=== PATIENT | male | born 2000 | race American Indian/Alaskan Native ===

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

== ENCOUNTER 2019-02-26 16:34 | Emergency (ER) | payer OTHER ==
[~2019-02-26] VITALS: Ht 177.8 cm; Wt 93.0 kg
--- OUTSIDE RECORDS SUMMARY | ~2019-02-26 | XMS | Encounter Summary ---
Demographics + + + | Address | [address] | | | [place] [address] | + + + | Home Phone | | + + + | Preferred Language | Unknown | + + + | Marital Status | Single | + + + | Buddhist Affiliation | Unknown | + + + | Race | or | + + + | Ethnic Group | Not or | + + + Author + + + | Organization | Unknown | + + + | Address | Unknown | + + + | Phone | Unavailable | + + + Support + + +---------+ + | Name | Relationship | Address | Phone | + + +---------+ + | Araceli Navarro | ECON | Unknown | | + + +---------+ + Care Team Providers + +------+ + | Care Networks Computer Consultant Name | Role | Phone | + +------+ + PCP | Unavailable | + +------+ + Encounter Details +--------+ + + + + | Date | Type | Department | Care Team | Description | +--------+ + + + + | 04/19/ | Transcribed | | Dictation, Other | Transcribed | | 2001 | | | | | +--------+ + + + + Social History + +-------+ +--------+------+ | Tobacco Use | Types | Packs/Day | Years | Date | | | | | Used | | + +-------+ +--------+------+ | Never Assessed | | | | | + +-------+ +--------+------+ + + + | Sex Assigned at | Date Recorded | | | | + + + | Not on file | | + + + + + + + | Job Start Date | Occupation | Industry | + + + + | Not on file | Not on file | Not on file | + + + + + + + + | Travel History | Travel Start | Travel End | + + + + + + | No recent travel history available. | + + documented as of this encounter Progress Notes Interface, Automation Controls Engineer In - 12/26/2005 5:23 AM PST April 19, 2000 Marcelo Acharya MD [address] [facility], [address] [place] [address] RE:Shilo Navarro MR#:[id number] : 89 Dear Don: Today I received your report on Shilo Navarro. He does not have any chromosomal abnormalities. Hopefully, this will clarify some issues on Shilo. Please feel free to contact me if you have any additional questions. Sincerely, [id number] Estuardo Carnes MD Web Content Specialist of Pediatric Otolaryngology Department of Otolaryngology/Head and Neck Surgery Email: [email or web address] URL: [email or web address] FLAVIA/maria eugenia P 5: 23 AM PSTdocumented in this encounter Plan of Treatment Not on filedocumented as of this encounter Visit Diagnoses Not on filedocumented in this encounter"
--- OUTSIDE RECORDS SUMMARY | ~2019-02-26 | XMS | Clinical Summary ---
Demographics + + + | Address | [address] | | | [place] [address] | + + + | Home Phone | | + + + | Preferred Language | Unknown | + + + | Marital Status | Single | + + + | Methodist Affiliation | Unknown | + + + [...] Team Providers + +------+ + | Care Manager Electrical Name | Role | Phone | + +------+ + PCP | Unavailable | + +------+ + Source Comments MARINE is fully live on both Health system Ambulatory and Health system InPatient.[facility] Allergies Not on File Medications Not on file Active Problems Not on file Social History + +-------+ +--------+------+ | Tobacco [...] recent travel history available. | + + Last Filed Vital Signs Not on file Plan of Treatment + + + + + | Health Maintenance | Due Date | Last Done | Comments | + + + + + | Influenza (Flu) | | | | | vaccination (#1) | 9 | | | + + + + + | Pneumococcal | Aged Out | | No longer eligible | | vaccination | | | based on patient's | | | | | age to complete this | | | | | topic | + + + + + Results Not on filefrom Last 3 Months"
--- OUTSIDE RECORDS SUMMARY | ~2019-02-26 | XMS | Encounter Summary ---
Demographics + + + | Address | [address] | | | [place] [address] | + + + | Home Phone | | + + + | Preferred Language | Unknown | + + + | Marital Status | Single | + + + | Religion Affiliation | Unknown | + + + | Race | or | + + + | Ethnic Group | Not or | + + + Author + + + | Author | [facility] | + + + | Organization | [facility] | + + + | Address | Unknown | + + + | Phone | Unavailable | + + + Support + + +---------+ + | Name | Relationship | Address | Phone | + + +---------+ + | Araceli Navarro | ECON | Unknown | | + + +---------+ + Care Team Providers + +------+ + | Care Teachers Aide Name | Role | Phone | + +------+ + PCP | Unavailable | + +------+ + Encounter Details +--------+ + + + + | Date | Type | Department | Care Team | Description | +--------+ + + + + | 01/04/ | Office | [facility] | Report, Outpatient | Progress Note | | 2000 | Visit-Trans | | Consultation | | | | cribed | | | | +--------+ + + [...] as of this encounter Progress Notes Interface, Coffee Grower In - 01/04/2006 5:09 AM PSTCLINIC DATE: 01/05/2000 CLINIC: CLEFT PALATE/CRANIOFACIAL CLINIC DISCIPLINE: SPEECH/LANGUAGE PATHOLOGY This 34-dlhql-zms youngster is seen today for coordinated appointments in the Cleft Palate Program Clinic. Shilo is accompanied to the clinic by his mother, Araceli. The family is here today for follow-up with regard to his early speech progress and voice quality and nasal resonance balance as well if possible. Shilo is beginning to use true words at home, both mamma, daddy, baba for bottle, baby, hat, hi, yeah, and is putting words together in a combination like what's that or who's that. He also utilizes a great deal of jargon as well where he talks to himself. He also enjoys singing according to his mother's report. This youngster is receiving Early Intervention Services as well. Shilo is utilizing some of the non-air pressure sounds such as M, N, H, W and Y sounds. He is also beginning to use air pressure sounds such as B and D. He has not yet begun to use P, T, K, or G sounds yet. These sounds would be expected around age [age] to fas-lsn-g-half years. Oral structures reveal that this youngster has soft palate movement upon phonation with no visible fistulae present in the hard or soft palate areas. There is no report by parents of food or liquid leak into the nasal cavity when Shilo eats or drinks. This youngster has had a history of liquid leak only in the period. Tonsils and adenoids are present according to the mother's report and upon evaluation visually. We could not perceptually gain appropriate information to make judgments on this youngster's voice quality or nasal resonance balance or velopharyngeal sufficiency as he is only using single words. However, the overall impression of this youngster is that he is making good progress in the use of early sounds, M, N, H, W and Y, and he is beginning to use the air pressure sounds B and D. We would like to recommend that the family continue to work with this youngster on the other air pressure sounds, P, T, K and G sounds, imitating them for Shilo with small toys each day and also chaining together these sounds such as [place] or [place] so he can see the adult model of these sounds and hear them and become familiar with them for usage himself. We will plan to see Shilo in our clinic again in approximately six months. At that time we will continue to evaluate his progress in articulation, voice quality, and nasal resonance balance as well as his overall ability to produce air pressure sounds in two-word combinations. Shilo is a delightful youngster. We enjoyed having him in the clinic today. We will look forward to our next visit. Mary Beth Almanza M.S., C.C.C.-S.P. Speech/Language Pathologist Director, Craniofacial Disorders Program [id number] signed by Interface, Coffee Grower In at 01/04/2006 5:09 AM PSTInterf britni, Coffee Grower In - 01/04/2006 5:09 AM PSTCLINIC DATE: 01/05/2000 CLINIC NAME: CRANIOFACIAL DISORDER CLINIC DISCIPLINE: SOCIAL WORK Shilo is 18 months old, and he has a diagnosis of submucosal cleft palate. This is his first visit to our clinic. Shilo lives in [place] with his mother, Linh Navarro. She is a single parent. Shilo has never been involved with his biological father, and there is no financial support. Shilo is the only child of his mother. Shilo's cleft palate was not noted until a couple of months ago. Medical care has been through the [facility] in [place]. The physician there made a referral to a staff combat information center officer, Dr. Marcelo Acharya, and also to an ear, nose and throat specialist, Dr. Guan, in [place]. A referral was then made to [facility] for further evaluation. Shilo has been having ongoing problems eating, and he is also a very picky eater. 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 Please refer to Luna Sawyer's report for further medical concerns and referrals. Mom is wondering whether or not surgery will be scheduled soon. She is concerned about the palate, but she is hopeful that it can be corrected. Shilo is also delayed in his speech and language. He is enrolled in Early Intervention through [facility]. He works with Jacinda Ortiz and Shabnam Patricia, both Child Development Specialists. Mother is working at the [employer] in [place], in the office. She works days. She has childcare arrangements through a daycare program. She does live with her sister and another friend, and therefore they are able to share expenses. She does not receive any mauricio assistance from [facility]. They are on insurance through the [employer] [facility] in [place]. Shilo's mother is partial and has enrolled in the [facility] program. It seems that Linh and her son are receiving good services in [place]. They are able to manage without additional financial assistance from the state. Mom is very proud to be independent of this type of assistance. She seems conscientious and eager for further work to be done on her son. Again, her concerns are feeding issues as well as Shilo's developmental delay. Hopefully, we will be able to address both of these in our clinic here as well as locally through the Early Intervention Program. Roxanna Clark LCSW Flavor Room Worker [id number] signed by Interface, Coffee Grower In at 01/04/2006 5:09 AM PSTInterf britni, Coffee Grower In - 01/04/2006 5:09 AM PSTCLINIC DATE: 01/05/2000 CLINIC NAME: CRANIOFACIAL DISORDERS CLINIC DISCIPLINE: PEDIATRIC NURSE PRACTITIONER Shilo is a [age] year, six month old little boy who was referred by Dr. Acacia Segura, of the [facility], for evaluation of possible submucous cleft. Shilo is accompanied by his mother, whose name is Araceli Navarro, for today's evaluation. Shilo will be seen by the nurse practitioner, Dr. Estuardo Carnes, ear, nose and throat specialist, our program social service assistant, Pediatric Audiology, and speech pathologist Mary Beth Almanza. CHIEF CONCERN: Mother is interested in knowing whether or not Shilo needs surgery for a submucous cleft palate. REVIEW OF RELEVANT MEDICAL HISTORY: Mother reports that there is no family history of any children born with any type of cleft or any other type of craniofacial difference. Mother states that she was a very poorly controlled insulin-dependent diabetic and did not know that she was with Shilo until she was at the end of her first trimester. Araceli also admits that she did participate in personal use of marijuana and methamphetamines prior to learning she was . Shilo was born seven weeks premature. He was [facility] at [facility]. He did weigh 5 pounds, 7 ounces. Apparently a heart murmur was diagnosed in the period but Mother was told that no further cardiac follow-up would be required for it. Shilo had a history of choking and a history of failure to thrive. Mother felt that he was able to take his bottles fairly well, so she was not aware of Shilo having any problem drawing nutrition from his bottle. She did report again coughing and choking during feeds and also describes some minimal nasal leakage, which she thought was a runny nose but now, in retrospect, believes it might have been a little bit of his milk leaking through his nose. She feels that he got "plenty to eat but still couldn't grow." His early health history was complicated by rather chronic and constant otitis media. Mother attributes his poor growth to frequent illness due to ear infections. He was finally referred to Dr. Alvarez, who is an ear, nose and throat specialist. Dr. Alvarez examined and scoped Shilo in August of 1999 and determined that pressure equalization (PE) tube placement was certainly necessary but confirmed the presence of a submucous cleft. Dr. Alvarez's report also remarks specifically about poor pharyngeal wall closure. Mother reports that she felt Shilo's hearing was very poor prior to receiving his tubes but she now is aware that he is doing much better and his verbalizations have increased significantly since his surgery in September. Shilo is involved with children's aide five days per week. His baby-sitter does smoke. Shilo's present nutrition consists of whole milk and appropriate foods for a toddler. Mother describes Shilo as a picky eater. He does like potatoes but he is just getting to the point of accepting soft meats such as turkey and bologna. He does enjoy tuna. He does take a bottle when he needs comforting but he does use a sippy cup at the daycare center where he attends five days per week. Mother reports that Shilo is just starting to feed himself. He is quite imitative, according to Mother, and is now brushing his own teeth and has been doing that for the last few months. Shilo is reluctant somewhat to let others brush his teeth. Shilo is currently in Early Intervention and receives physical therapy two-three times per month. Mother reports the physical therapist goes to Shilo's daycare site. In addition, he does receive monitoring for general developmental progress. A review of his early milestones indicates that Shilo sat at approximately nine months of age, he was crawling at about [age] year, and he has just started walking at 18 months of age. Mother feels that he has good understanding of receptive language. She points out that he is able to understand and comply with very simple commands. His expressive language has blossomed since he received his PE tubes. Mother reports that he says mama, rafal, baby, baba, hat, yuh, no, what's that, and who's that. Our social service assistant will be meeting with Bret today, as well, to review the current family social circumstances. PHYSICAL EXAMINATION FINDINGS: Weight is 22 pounds, 6 ounces. His length is 82 cm. Head circumference is 48.5 cm. Shilo is a very sweet little boy with a ready social smile. He is small for his age but well-proportioned. He has a full head of dark, curly hair. His anterior fontanelle is fibrosed. He does have somewhat unusual facies, in that his eyes appear somewhat close-set. He has a narrowing through his midface, slightly prominent, almost cupped ears, and thin upper lip with kind of a flattened philtrum. His pupils are equal, round, and reactive to light. Red light reflexes are positive bilaterally. He does track across midline but I had trouble getting his cooperation to check his full extraocular movements. His nose is somewhat elongated, with the suggestion of a wider nasal bridge. He has no nasal secretions today. His lower jaw appears to be normally formed and of normal size. He does have teeth present but he was very reluctant for oral exam so I could not speak to the issue of any decay. His palate seemed to have a prominent margin at the hard and soft palatal junctures but I was not able to visualize his uvula due to his poor cooperation. I felt he had no swollen glands. I could not hear a heart murmur today. His chest had a few coarse rhonchi in the upper chest area. There were absolutely no rales and his respirations were easy and quiet. His abdomen was soft without mass. His back appeared straight without irregularity. His overall tone was low normal and I could not see a PE tube on the left side but one was visible on the right. He was circumcised. His right testis was sitting a little bit high in the scrotal sac in comparison to the left. His deep tendon reflexes were +1 and symmetrical at his knees. I did not get any clonus. Full development testing was not done today. IMPRESSION: Shilo is an 18 month old boy who was born seven weeks prematurely and whose early history included a heart murmur, which is no longer audible, a history of chronic otitis media with fluid, which has required tympanostomy tube placement, a history of developmental delay and failure to thrive, and currently a question of the presence of a submucous cleft palate. I believe Shilo would also benefit from chromosome testing and looking specifically for the possibility of 22q11 deletion. His environment, of course, could also have contributed to the etiology of his physical differences. PLAN FOR FOLLOW-UP: 1) Mother and I did talk about blood testing for 22q11 deletion, which is specific for velocardiofacial syndrome. I did ask Mother to review this topic with Dr. Carnes when she saw him later today. The blood testing could be done today before she leaves clinic or certainly could be done through her primary health care physician, as well. Positive testing would certainly prompt a referral to our [facility] Genetics and Defects Clinic. 2) Shilo will be seen by Dr. Carnes later this afternoon to diagnose and discuss management plan for possible submucosal cleft palate. 3) I would like to see Shilo in six months when he returns for his next full Craniofacial Team evaluation. In addition to today's team members, I would also like to request that Shilo have a visit with Dr. Meño Joseph, who is the dentist for our team. Adonis VillegasNJhon. Pediatric Nurse Practitioner REGINA/x36 [id number] signed by Interface, Coffee Grower In at 01/04/2006 5:09 AM PSTInterf britni, Coffee Grower In - 01/04/2006 5:09 AM PSTCLINIC DATE: 01/05/2000 CLINIC NAME: CRANIOFACIAL DISORDERS CLINIC DISCIPLINE: PEDIATRIC AUDIOLOGY BACKGROUND INFORMATION: Shilo was seen today for a hearing evaluation through the Craniofacial Disorders Clinic. He was accompanied by his mother who reports that Shilo has had tympanostomy tubes placed in both ears in [place], [place]. She has no concerns with Shilo's hearing today. Shilo is diagnosed with submucosal cleft palate. AUDIOLOGIC FINDINGS: Brets hearing was evaluated today through the use of Visual Reinforcement Audiometry (VRA). He consistently localized to voice stimuli when presented at 15 dB HL. Shilo also consistently localized to narrow band noise acoustic signals with center frequencies of 1500, 3000, 4000, and 6000 Hz when presented at 30 dB HL. Shilo was seen by Estuardo Carnes M.D., pediatric title examiner, prior to this visit to Pediatric Audiology. Tympanostomy tubes were noted to be patent and functioning. DIAGNOSTIC IMPRESSIONS: Brets hearing is communicative and cognitive needs. Hearing in at least the better ear is most likely within normal limits, as displayed by consistent localization in sound field. Patent and functioning tympanostomy tubes bilaterally. COMMENTS AND RECOMMENDATIONS: The results of today's visit were shared with Shilo's mother and the rest of the Craniofacial Disorders Clinic team. It was recommended that he return for additional hearing evaluation with his next visit to the Craniofacial Disorders Clinic. Génesis Gerardo M.S., [facility]-A Box Sorter ACCOUNTING CLERK/x36 [id number] signed by Interface, Coffee Grower In at 01/04/2006 5:09 AM PSTdocume nted in this encounter Plan of Treatment Not on filedocumented as of this encounter Visit Diagnoses Not on filedocumented in this encounter
--- OUTSIDE RECORDS SUMMARY | ~2019-02-26 | XMS | Clinical Summary ---
Demographics + + + | Address | [address] | | | [place] [address] | + + + | Home Phone | | + + + | Preferred Language | Unknown | + + + | Marital Status | Single | + + + | Sabianism Affiliation | Unknown | + + + [...] Team Providers + +------+ + | Care Camera Engineer Name | Role | Phone | + +------+ + PCP | Unavailable | + +------+ + Source Comments MARINE is fully live on both [facility] Ambulatory and [facility] InPatient.[facility] Allergies Not on File Medications Not on [...]
--- OUTSIDE RECORDS SUMMARY | ~2019-02-26 | XMS | Encounter Summary ---
Demographics + + + | Address | [address] | | | [place] [address] | + + + | Home Phone [...] Team Providers + +------+ + | Care Grid Caster Name | Role | Phone | + [...] as of this encounter Progress Notes Interface, Blasting Cap Assembler In - 12/26/2005 5:23 AM PST April 19, 2000 Marcelo Acharya MD [address] [facility], [address] [place] [address] RE:Shilo Navarro MR#:[id number] : 89 Dear Don: Today I received your report on Shilo Navarro. He does not have any chromosomal abnormalities. Hopefully, this will clarify some issues on Shilo. Please feel free to contact me if you have any additional questions. Sincerely, [id number] Estuardo Carnes MD Director Of Brand Marketing of Pediatric Otolaryngology Department of Otolaryngology/Head and Neck Surgery Email: [email or web address] URL: [email or web address] FLAVIA/maria eugenia P 5: 23 AM PSTdocumented in this encounter Plan of Treatment Not on filedocumented as of this encounter Visit Diagnoses Not on filedocumented in this encounter"
--- OUTSIDE RECORDS SUMMARY | ~2019-02-26 | XMS | Encounter Summary ---
Demographics + + + | Address | [address] | | | [place] [address] | + + + | Home Phone | | + + + | Preferred Language | Unknown | + + + | Marital Status | Single | + + + | Congregation Affiliation | Unknown | + + + | Race | or | + + + | Ethnic Group | Not or | + + + Author + + + | Author | [facility] | + + + | Organization | [facility] | + + + | Address | Unknown | + + + | Phone | Unavailable | + + + Support + + +---------+ + | Name | Relationship | Address | Phone | + + +---------+ + | Araceli Navarro | ECON | Unknown | | + + +---------+ + Care Team Providers + +------+ + | Care Marking Machine Operator Name | Role | Phone | + +------+ + PCP | Unavailable | + +------+ + Encounter Details +--------+ + + + + | Date | Type | Department | Care Team | Description | +--------+ + + + + | 01/04/ | Office | [facility] | Note, Outpatient | Progress Note | | 2000 | Visit-Trans | MEDICINE | Clinic | | | | cribed | | [...] as of this encounter Progress Notes Interface, Grease Remover In - 01/04/2006 5:09 AM PSTCLINIC DATE: 01/05/2000 PEDIATRIC OTOLARYNGOLOGY CLINIC PRIMARY CARE PROVIDER: Marcelo Acharya M.D. HISTORY OF PRESENT ILLNESS: This 75-hycre-yya boy is referred to the Craniofacial Disorders Team for evaluation of a possible submucosal cleft palate. The mother reports that he has had multiple episodes of acute otitis media that required ear tube placement in September 1999. He did have some scant otorrhea after surgery but none since then. He did not have any preoperatively. His acute ear infections were generally associated with upper respiratory tract infections. His feeds have been improving, and he is now taking solids. The mother denies any nasal regurgitation. He has not had any blood work or analyses for any chromosomal abnormality. In the process of being evaluated for his ear tubes by , a nasoendoscopy was performed (I have the records of this). In his evaluation, he did not notice any abnormality of the palate by flexible examination. He does note that there was closure of the velopharynx. He states that he did not see a muscular dehiscence. PAST MEDICAL HISTORY ALLERGIES: ZITHROMAX. MEDICATIONS: None. SURGERIES: Ear tube placement in September 1999 and circumcision. Additional past medical history, family history, social history, and review of systems are documented on the pediatric otolaryngology intake form and are reviewed. He does have a history of a failure to thrive as well as a heart murmur. He is a premature baby at 33 weeks and is a . He does attend a large day care. He is also exposed to smoke. There is no other family history of cleft lip or palate. Other findings are documented and noncontributory. PHYSICAL EXAMINATION: GENERAL: A well-developed, well-nourished, active boy, cooperative with the examination but not talkative and in no respiratory distress. VITAL SIGNS: Weight 10 kg (approximately 10th percentile). HEENT: Head: Normocephalic and atraumatic. No obvious asymmetries. Ears: The external ears are normal. The external auditory canals are clear. Both eardrums have ear tubes in place, and they are clear. Eyes: Sclerae and conjunctivae are clear. Nose: There is no external deformity. Septum is midline. There is no discharge seen. OC/OP: His primary dentition is beginning to erupt, and they appear to be in good health. There is no labial, gingival, or other mucosal lesions. Palate appears intact with no evidence of clefting by inspection or palpation. Tonsils are 1 to 2+. NECK: There is no cervical adenopathy. There is no salivary or thyroid masses. NEUROLOGIC: Cranial nerves: He moves his face, tongue, and palate symmetrically. ASSESSMENT 1. History of eustachian tube dysfunction, status post ear tube placement. 2. History of developmental delays. 3. 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 PLAN: On my evaluation (and that of Mary Beth Almanza), we did not see any clear evidence of a submucosal cleft palate. However, there could be subtle palatal abnormalities that are not evident at this age. I would like to see how his speech and language develops, and if he is showing signs of hypernasality or nasal air admission, then I think a reevaluation in the Velopharyngeal Insufficiency Clinic would be warranted. Otherwise, follow up with me will be on an as needed basis. Estuardo Carnes M.D. Pediatric Otolaryngology-Head and Neck Surgery / HS [id number] / [id number] / [id number] / [id number] cc: Marcelo Acharya M.D. [address] [place] [address], [address] [place] [address] Maggie Cristina [facility] B8 [id number] signed by Interface, Grease Remover In at 01/04/2006 5:09 AM PSTdocume nted in this encounter Plan of Treatment Not on filedocumented as of this encounter Visit Diagnoses Not on filedocumented in this encounter"
--- OUTSIDE RECORDS SUMMARY | ~2019-02-26 | XMS | Encounter Summary ---
Demographics + + + | Address | [address] | | | [place] [address] | + + + | Home Phone | | + + + | Preferred Language | Unknown | + + + | Marital Status | Single | + + + | Moravian Affiliation | Unknown | + + + | Race | or | + + + | Ethnic Group | Not or | + + + Author + + + | Author | [facility] | + + + | Organization | [facility] | + + + | Address | Unknown | + + + | Phone | Unavailable | + + + Support + + +---------+ + | Name | Relationship | Address | Phone | + + +---------+ + | Araceli Navarro | ECON | Unknown | | + + +---------+ + Care Team Providers + +------+ + | Care Instrument Sterilizer Name | Role | Phone | + [...] as of this encounter Progress Notes Interface, Supervisor Shaving And Splitting In - 01/04/2006 5:09 AM PSTCLINIC DATE: 01/05/2000 PEDIATRIC OTOLARYNGOLOGY CLINIC PRIMARY CARE PROVIDER: Marcelo Acharya M.D. HISTORY OF PRESENT ILLNESS: This 89-liifz-zmq boy is referred to the Craniofacial Disorders [...] Pediatric Otolaryngology-Head and Neck Surgery / HS [id number] / [id number] / [id number] / [id number] cc: Marcelo Acharya M.D. [address] [place] [address], [address] [place] [address] Maggie Cristina [facility] B8 [id number] signed by Interface, Supervisor Shaving And Splitting In at 01/04/2006 5:09 AM PSTdocume nted in this encounter Plan of Treatment Not on filedocumented as of this encounter Visit Diagnoses Not on filedocumented in this encounter"
--- OUTSIDE RECORDS SUMMARY | ~2019-02-26 | XMS | Encounter Summary ---
Demographics + + + | Address | [address] | | | [place] [address] | + + + | Home Phone | | + + + | Preferred Language | Unknown | + + + | Marital Status | Single | + + + | Roman Catholic Affiliation | Unknown | + + + | Race | or | + + + | Ethnic Group | Not or | + + + Author + + + | Author | [facility] | + + + | Organization | [facility] | + + + | Address | Unknown | + + + | Phone | Unavailable | + + + Support + + +---------+ + | Name | Relationship | Address | Phone | + + +---------+ + | Araceli Navarro | ECON | Unknown | | + + +---------+ + Care Team Providers + +------+ + | Care Awning Installer Name | Role | Phone | + [...] as of this encounter Progress Notes Interface, Breakfast Supervisor In - 01/04/2006 5:09 AM PSTCLINIC DATE: 01/05/2000 CLINIC: CLEFT PALATE/CRANIOFACIAL CLINIC DISCIPLINE: SPEECH/LANGUAGE PATHOLOGY This 74-elqrg-frn youngster is seen today for coordinated appointments [...] would be expected around age [age] to grb-dew-w-half years. Oral structures reveal that this youngster [...] Speech/Language Pathologist Director, Craniofacial Disorders Program [id number] signed by Interface, Breakfast Supervisor In at 01/04/2006 5:09 AM PSTInterf britni, Breakfast Supervisor In - 01/04/2006 5:09 AM PSTCLINIC DATE: 01/05/2000 CLINIC NAME: CRANIOFACIAL DISORDER CLINIC DISCIPLINE: SOCIAL WORK Shilo is 18 months old, and he has a diagnosis of submucosal cleft palate. This is his first visit to our clinic. Shilo lives in [place] with his mother, Linh Navarro. She is a single parent. Shilo has never been involved with his biological father, and there is no financial support. Shilo is the only child of his mother. Shilo's cleft palate was not noted until a couple of months ago. Medical care has been through the [facility] in [place]. The physician there made a referral to a air pollution inspector, Dr. Marcelo Acharya, and also to an ear, nose and throat specialist, Dr. Guan, in [place]. A referral was then made to [facility] for further evaluation. Shilo has been having [...] He is enrolled in Early Intervention through [facility]. He works with Jacinda Ortiz and Shabnam Patricia, both Child Development Specialists. Mother is working at the [employer] in [place], in the office. She works days. She has childcare arrangements through a daycare program. She does live with her sister and another friend, and therefore they are able to share expenses. She does not receive any mauricio assistance from [facility]. They are on insurance through the [facility] in [place]. Shilo's mother is partial and has enrolled in the [place] program. It seems that Linh and her son are receiving good services in [place]. They are able to manage without additional [...] the Early Intervention Program. Roxanna Clark LCSW Finance Lecturer EM:[id number] signed by Interface, Breakfast Supervisor In at 01/04/2006 5:09 AM PSTInterf britni, Breakfast Supervisor In - 01/04/2006 5:09 AM PSTCLINIC DATE: 01/05/2000 CLINIC NAME: CRANIOFACIAL DISORDERS CLINIC DISCIPLINE: PEDIATRIC NURSE PRACTITIONER Shilo is a [age] year, six month old little boy who was referred by Dr. Acacia Segura, of the [facility], for evaluation of possible submucous cleft. Shilo is accompanied by his mother, whose name is Araceli Navarro, for today's evaluation. Shilo will be seen by the nurse practitioner, Dr. Estuardo Carnes, ear, nose and throat specialist, our program nephrology social worker, Pediatric Audiology, and speech pathologist Mary Beth [...] seven weeks premature. He was born at [facility]. He did weigh 5 pounds, 7 [...] surgery in September. Shilo is involved with child support specialist five days per week. His baby-sitter does [...] no, what's that, and who's that. Our nephrology social worker will be meeting with Bret today, as [...] would certainly prompt a referral to our [facility] Genetics and Defects Clinic. 2) Shilo will [...] team. Adonis VillegasNJhon. Pediatric Nurse Practitioner REGINA/x36 [id number] signed by Interface, Breakfast Supervisor In at 01/04/2006 5:09 AM PSTInterf britni, Breakfast Supervisor In - 01/04/2006 5:09 AM PSTCLINIC DATE: 01/05/2000 CLINIC NAME: CRANIOFACIAL DISORDERS CLINIC DISCIPLINE: PEDIATRIC AUDIOLOGY BACKGROUND INFORMATION: Shilo was seen today for a hearing evaluation through the Craniofacial Disorders Clinic. He was accompanied by his mother who reports that Shilo has had tympanostomy tubes placed in both ears in [place], [place]. She has no concerns with Shilo's [...] was seen by Estuardo Carnes M.D., pediatric color room attendant, prior to this visit to Pediatric Audiology. [...] visit to the Craniofacial Disorders Clinic. Génesis Greardo M.S., [facility] Infectious Waste Technician BOW MAKING MACHINE OPERATOR/[id number] signed by Interface, Breakfast Supervisor In at 01/04/2006 5:09 AM PSTdocume nted in this encounter Plan of Treatment Not on filedocumented as of this encounter Visit Diagnoses Not on filedocumented in this encounter
--- OUTSIDE RECORDS SUMMARY | ~2019-02-26 | XMS | Encounter Summary ---
Demographics + + + | Address | [address] | | | [place] [address] | + + + | Home Phone | | + + + | Preferred Language | Unknown | + + + | Marital Status | Single | + + + | Voodoo Affiliation | Unknown | + + + | Race | or | + + + | Ethnic Group | Not or | + + + Author + + + | Author | [facility] | + + + | Organization | [facility] | + + + | Address | Unknown | + + + | Phone | Unavailable | + + + Support + + +---------+ + | Name | Relationship | Address | Phone | + + +---------+ + | Araceli Navarro | ECON | Unknown | | + + +---------+ + Care Team Providers + +------+ + | Care School Director Name | Role | Phone | + +------+ + PCP | Unavailable | + +------+ + Encounter Details +--------+ + + + + | Date | Type | Department | Care Team | Description | +--------+ + + + + | 01/04/ | Results | Otolaryngology | Estuardo Carnes MD | | | 1999 | Only | Pediatrics Services | [address] [facility] | | | | | [facility] [address] [facility] | [facility] | | | | | Mailcode: [address] | [place], [place] | | | | | Yaya | [address] | | | | | [place], [place] | [phone] | | | | | [address] | | | | | | [phone] | | | +--------+ + + + [...] + + documented as of this encounter Plan of Treatment Not on filedocumented as of this encounter Procedures + +--------+ + + + | Procedure Name | Priori | Date/Time | Associated Diagnosis | Comments | | | ty | | | | + +--------+ + + + | SPECIMEN ROUTING | Routin | 01/05/2000 | | Results for this | | | e | 3:10 PM | | procedure are in the | | | | PST | | results section. | + +--------+ + + + | COAG MASTER PANEL | Routin | 01/05/2000 | | Results for this | | | e | 2:55 PM | | procedure are in the | | | | PST | | results section. | + +--------+ + + + | INR | Routin | 01/05/2000 | | Results for this | | | e | 2:55 PM | | procedure are in the | | | | PST | | results section. | + +--------+ + + + | APTT (ACT. PART. | Routin | 01/05/2000 | | Results for this | | THROMBO TIME) | e | 2:55 PM | | procedure are in the | | | | PST | | results section. | + +--------+ + + + | CALCIUM, IONIZED, | Routin | 01/05/2000 | | Results for this | | WHOLE BLOOD | e | 2:55 PM | | procedure are in the | | | | PST | | results section. | + +--------+ + + + | CYTOGENETICS REPORT | Routin | 01/05/2000 | | Results for this | | | e | | | procedure are in the | | | | | | results section. | + +--------+ + + + documented in this encounter Results SPECIMEN ROUTING (01/05/2000 3:10 PM PST) + + + + + + | Component | Value | Ref Range | Performed | Pathologist | | | | | At | Signature | + + + + + + | SAMPLE | green sod/hep | | [facility] | | | TYPE-ROUTIN | | | DEPARTMENT | | | G | | | OF | | | | | | PATHOLOGY | | + + + + + + | TEST | fish test | | [facility] | | | REQUESTED | | | DEPARTMENT | | | | | | OF | | | | | | PATHOLOGY | | + + + + + + | SENT TO | Cytogenetics Lab:Ext | | [facility] | | | | [phone] | | DEPARTMENT | | | | | | OF | | | | | | PATHOLOGY | | + + + + + + + + | Specimen | + + | | + + + + + + + | Performing | Address | City/State/Zipcode | Phone Number | | Organization | | | | + + + + + | [facility] | [address] | [place] [address] | | | PATHOLOGY | [address] | | | + + + + + | [facility] | [facility] | [place] [address] | | | PATHOLOGY | [address] | | | + + + + + APTT (ACT. PART. THROMBO TIME) (01/05/2000 2:55 PM PST) + + + + + + | Component | Value | Ref Range | Performed | Pathologist | | | | | At | Signature | + + + + + + | APTT | 36.8 (H)Comment: | 27.0 - 35.0 | [facility] | | | | APTT Therapeutic | seconds | DEPARTMENT | | | | Range | | OF | | | | | | PATHOLOGY | | | | (70-110)sec | | | | | | Heparin levels | | | | | | of 0.35-0.7 U/mL | | | | + + + + + + + + | Specimen | + + | | + + + + + + + | Performing | Address | City/State/Zipcode | Phone Number | | Organization | | | | + + + + + | [facility] DEPARTMENT | [address] | [place] [address] | | | PATHOLOGY | [address] | | | + + + + + | [facility] DEPARTMENT | [address] | [place] [address] | | | PATHOLOGY | [address] | | | + + + + + PROTHROMBIN TIME (01/05/2000 2:55 PM PST) + + + + + + | Component | Value | Ref Range | Performed | Pathologist | | | | | At | Signature | + + + + + + | INR | 0.98Comment: | 0.98 - 1.08 INR | [facility] | | | | PT INR Therapeutic | | DEPARTMENT | | | | ranges for full | | OF | | | | anticoagulation: | | PATHOLOGY | | | | INR for | | | | | | Venous Thromboembolism | | | | | | | | | | | | (2.0-3.0)INR | | | | | | INR for most | | | | | | patients with mech. | | | | | | valves (2.5-3.5)INR | | | | + + + + + + + + | Specimen | + + | | + + + + + + + | Performing | Address | City/State/Zipcode | Phone Number | | Organization | | | | + + + + + | [facility] | [address] | [place] [address] | | | PATHOLOGY | [address] | | | + + + + + | [facility] DEPARTMENT | [address] | [place] [address] | | | PATHOLOGY | [address] | | | + + + + + COA MASTER PANEL (01/05/2000 2:55 PM PST) + + + + + + | Component | Value | Ref Range | Performed | Pathologist | | | | | At | Signature | + + + + + + | INR | 0.98Comment: | 0.98 - 1.08 INR | [facility] | | | | PT INR Therapeutic | | DEPARTMENT | | | | ranges for full | | OF | | | | anticoagulation: | | PATHOLOGY | | | | INR for | | | | | | Venous Thromboembolism | | | | | | | | | | | | (2.0-3.0)INR | | | | | | INR for most | | | | | | patients with mech. | | | | | | valves (2.5-3.5)INR | | | | + + + + + + | APTT | 36.8 (H)Comment: | 27.0 - 35.0 | [facility] | | | | APTT Therapeutic | seconds | DEPARTMENT | | | | Range | | OF | | | | | | PATHOLOGY | | | | (70-110)sec | | | | | | Heparin levels | | | | | | of 0.35-0.7 U/mL | | | | + + + + + + + + | Specimen | + + | | + + + + + + + | Performing | Address | City/State/Zipcode | Phone Number | | Organization | | | | + + + + + | [facility] DEPARTMENT OF | [address] | [place] [address] | | | PATHOLOGY | [address] | | | + + + + + | [facility] DEPARTMENT OF | [address] | [place] [address] | | | PATHOLOGY | [address] | | | + + + + + CALCIUM, IONIZED, WHOLE BLOOD (01/05/2000 2:55 PM PST) + +-------+ + + + | Component | Value | Ref Range | Performed | Pathologist | | | | | At | Signature | + +-------+ + + + | DAVID ICA, | 1.21 | 1.14 - 1.32 | [facility] | | | WHOLE BLD | | mmol/L | DEPARTMENT | | | | | | OF | | | | | | PATHOLOGY | | + +-------+ + + + | PH, WHOLE | 7.37 | | [facility] | | | BLOOD | | | DEPARTMENT | | | | | | OF | | | | | | PATHOLOGY | | + +-------+ + + + | CALC ICA, | 1.19 | 1.14 - 1.28 | [facility] | | | WHOLE BLD | | mmol/L | DEPARTMENT | | | | | | OF | | | | | | PATHOLOGY | | + +-------+ + + + + + | Specimen | + + | | + + + + + | Narrative | Performed At | + + + | Ionized Calcium, Whole Blood | [facility] | | | DEPARTMENT OF | | | PATHOLOGY | + + + + + + + + | Performing | Address | City/State/Zipcode | Phone Number | | Organization | | | | + + + + + | [facility] DEPARTMENT OF | [address] | [place] [address] | | | PATHOLOGY | [address] | | | + + + + + | [facility] DEPARTMENT OF | [address] | [place] [address] | | | PATHOLOGY | [address] | | | + + + + + CYTOGENETICS REPORT (01/05/2000) + + + + + + | Component | Value | Ref Range | Performed | Pathologist | | | | | At | Signature | + + + + + + | CHROMOSOME | REPORT TEXT:CHROMOSOME | | [facility] | | | REPORT | RESULTS: Normal FISH | | DEPARTMENT | | | | RESULTS: Normal | | OF | | | | CHROMOSOME | | PATHOLOGY | | | | ANALYSIS: 3 CELLS | | | | | | KARYOTYPED RESOLUTION | | | | | | LEVEL: 650 BANDS | | | | | | TOTAL OF 25 CELLS | | | | | | EXAMINED, OF THESE 25 | | | | | | CELLS HAD 46 CHROMOSOMES | | | | | | 10 ADDITIONAL | | | | | | CELLS SCORED FOR Vysis | | | | | | Tuple 1 DG/VCFS probes | | | | | | KARYOTYPE | | | | | | DIAGNOSIS:46,XY | | | | | | IMPRESSIONS AND | | | | | | RECOMMENDATIONS: | | | | | | All twenty-five | | | | | | metaphase cells analyzed | | | | | | appeared normal male. | | | | | | In situ | | | | | | hybridization using the | | | | | | Vysis VCFS/DG Tuple 1 | | | | | | probe (cat. #[id number],lot | | | | | | #[id number]) showed two | | | | | | signals for the | | | | | | identifier probe, one on | | | | | | eachchromosome 22, and | | | | | | two signals for the | | | | | | Tuple 1 probe. This is | | | | | | a normalresult; no | | | | | | deletion of the VCFS/DG | | | | | | region of chromosome | | | | | | 22q.Blood:Full/FISH | | | | | | My electronic | | | | | | signature indicates that | | | | | | I have personally | | | | | | reviewed alldiagnostic | | | | | | slides, the gross and/or | | | | | | microscopic portion of | | | | | | thisreport and | | | | | | formulated the final | | | | | | diagnosis. | | | | + + + + + + + + | Specimen | + + | Other | + + + + + + + | Performing | Address | City/State/Zipcode | Phone Number | | Organization | | | | + + + + + | [facility] | [address] | [place] [address] | | | PATHOLOGY | [address] | | | + + + + + documented in this encounter Visit Diagnoses Not on filedocumented in this encounter"
--- OUTSIDE RECORDS SUMMARY | ~2019-02-26 | XMS | Encounter Summary ---
Demographics + + + | Address | [address] | | | [place] [address] | + + + | Home Phone | | + + + | Preferred Language | Unknown | + + + | Marital Status | Single | + + + | Synagogue Affiliation | Unknown | + + + | Race | or | + + + | Ethnic Group | Not or | + + + Author + + + | Author | [facility] | + + + | Organization | [facility] [employer] [facility] | + + + | Address | Unknown | + + + | Phone | Unavailable | + + + Support + + +---------+ + | Name | Relationship | Address | Phone | + + +---------+ + | Araceli Navarro | ECON | Unknown | | + + +---------+ + Care Team Providers + +------+ + | Care Nitrocellulose Maker Name | Role | Phone | + +------+ + PCP | Unavailable | + +------+ + Encounter Details +--------+ + + + + | Date | Type | Department | Care Team | Description | +--------+ + + + + | 01/04/ | Results | Otolaryngology | Estuardo Carnes MD | | | 1999 | Only | Pediatrics Services | [address] [facility] | | | | | [facility] [address] [facility] | [facility] | | | | | Mailcode: PV01 | [place], [place] | | | | | [place] | [address] | | | | | [place], [place] | [phone] | | | | | [address] | | | | | | [phone] | | | +--------+ + + + [...] | + + + + + | [facility] | [address] [facility] | [place] [address] | | | PATHOLOGY | [address] | | | + + + + + | [facility] | [facility] [facility] | [place] [address] | | | PATHOLOGY | [address] [...] | + + + + + | [facility] DEPARTMENT | [address] | [place] [address] | | | PATHOLOGY | [address] | | | + + + + + | [facility] DEPARTMENT | [address] | [place] [address] | | | PATHOLOGY | [address] | | | + + + + + PROTHROMBIN TIME (01/05/2000 2:55 PM PST) + + + + + + | Component | Value | Ref Range | Performed | Pathologist | | | | | At | Signature | + + + + + + | INR | 0.98Comment: | 0.98 - 1.08 INR | [facility] | | | | PT INR Therapeutic [...] | + + + + + | [facility] | [address] [facility] | [place] [address] | | | PATHOLOGY | [address] | | | + + + + + | [facility] DEPARTMENT | [address] [facility] | [place] [address] | | | PATHOLOGY | [address] [...] | + + + + + | [facility] DEPARTMENT OF | [address] | [place] [address] | | | PATHOLOGY | [address] | | | + + + + + | [facility] DEPARTMENT OF | [address] | [place] [address] | | | PATHOLOGY | [address] [...] | + + + + + | [facility] DEPARTMENT OF | [address] | [place] [address] | | | PATHOLOGY | [address] | | | + + + + + | [facility] DEPARTMENT OF | [address] | [place] [address] | | | PATHOLOGY | [address] | | | + + + + + CYTOGENETICS REPORT (01/05/2000) + + + + + + | Component | Value | Ref Range | Performed | Pathologist | | | | | At | Signature | + + + + + + | CHROMOSOME | REPORT TEXT:CHROMOSOME | | [facility] | | | REPORT | RESULTS: Normal [...] | | | | | probe (cat. #[id number],lot | | | | | | #[id number]) showed two | | | | | [...] | + + + + + | [facility] | [address] | [place] [address] | | | PATHOLOGY | [address] | | | + + + + + documented in this encounter Visit Diagnoses Not on filedocumented in this encounter"
[2019-02-26] MEDS ORDERED: ATHENOL325 MG PO (16:46)
[2019-02-26] MEDS ORDERED: CLEOCIN HCL300 MG PO (17:46)
== END 2019-02-26 17:57 | disposition home or self-care (01) ==
LOC: ED 16:34
DX: K04.7 Periapical abscess without sinus (principal); Z88.0 Allergy status to penicillin
CPT/HCPCS: 41800; 99282-25